=== PATIENT | female | born 1935 | race Caucasian/White ===

== ENCOUNTER 2023-09-06 19:24 | Inpatient (IN) | payer MEDICARE ==
[~2023-09-06] VITALS: Ht 139.7 cm; Wt 45.4 kg
[~2023-09-06 19:24] MED LIST: AMLODIPINE BESYL5 MG PO; CRESTOR10 MG PO; HYDRALAZINE HCL50 MG PO; LIALDA1.2 GM PO; LOSARTAN POTAS100 MG PO; METFORMIN HCL500 M2 PO; METOPROLOL TAR100 MG PO
[2023-09-06 20:15] VITALS: TEMP 97.9
[2023-09-06 21:11] LABS: BASOPHILS # (AUTO) 0.1 (0.0-0.1); BASOPHILS % 0.5 % (0.0-1.0); EOSINOPHILS # (AUTO) 0.1 (0.0-0.4); EOSINOPHILS % 0.9 % (0.0-6.0); HEMATOCRIT 45.3 % (34.2-44.1); HEMOGLOBIN 14.6 g/dL (12.0-16.0); LYMPHOCYTES # (AUTO) 1.9 (1.0-3.2); LYMPHOCYTES % 20.2 % (18.0-39.1); MEAN CORPUSCULAR HEMOGLOBIN 30.9 pg (28-32); MEAN CORPUSCULAR HGB CONC 32.2 g/dL (31-35); MONOCYTES # (AUTO) 0.7 (0.2-0.8); MONOCYTES % 7.8 % (4.4-11.3); NEUTROPHILS # (AUTO) 6.5 (2.1-6.9); NEUTROPHILS % 69.7 % (38.7-80.0); PLATELET COUNT 243 x10e3/uL (140-360); RED BLOOD COUNT 4.72 x10e6/uL (3.6-5.1); RED CELL DISTRIBUTION WIDTH 12.8 % (11.7-14.4); WHITE BLOOD COUNT 9.28 x10e3/uL (4.8-10.8)
[2023-09-06] MEDS: DILTIAZEM HCL 5 MG/ML 5 ML VIAL IV STA (21:11)
[2023-09-06] MEDS: ASPIRIN 81 MG CHEW TAB PO ONE (21:12)
[2023-09-06 21:17] LABS: CLARITY,URINE CLEAR (CLEAR); COLOR,URINE YELLOW (YELLOW); LEUKOCYTE ESTERASE ,URINE NEGATIVE (NEGATIVE); NITRITE,URINE NEGATIVE (NEGATIVE); PH,URINE 6 (5 - 7); PROTEIN,URINE DIPSTICK NEGATIVE (NEGATIVE)
[2023-09-06 21:18] LABS: BILIRUBIN,URINE NEGATIVE (NEGATIVE); GLUCOSE, URINE >=1000 (NEGATIVE); KETONES,URINE NEGATIVE (NEGATIVE); URINE UROBILINOGEN 0.2 mg/dL (0.2 - 1)
[2023-09-06 21:21] LABS: INR 0.85; PROTHROMBIN TIME 12.3 seconds (11.9-14.5)
[2023-09-06 21:22] LABS: PARTIAL THROMBOPLASTIN TIME 24.2 seconds (23.8-35.5)
[2023-09-06 21:28] LABS: EPITHELIAL CELLS,URINE RARE /LPF
[2023-09-06 21:29] LABS: ALBUMIN 4.4 g/dL (3.5-5.0); ALBUMIN/GLOBULIN RATIO 1.2 (0.8-2.0); ANION GAP 16.2 mmol/L (8-16); BILIRUBIN,TOTAL 0.9 mg/dL (0.2-1.2); CREATININE, SERUM 1.07 mg/dL (0.57-1.11); POTASSIUM 4.2 mmol/L (3.5-5.1); TOTAL PROTEIN 8.2 g/dL (6.5-8.1)
[2023-09-06 21:35] LABS: TROPONIN I 0.022 ng/mL (0-0.300)
[2023-09-06] MEDS ORDERED: IOPAMIDOL 370 MG/ML 100 ML INFUS..BTL INJ ONE (21:42)
[2023-09-06] MEDS: METOPROLOL TARTRATE 25 MG TAB PO ONE (22:07)
[2023-09-07] VITALS (11 sets, daily range): BP systolic 121–167; BP diastolic 57–87; PULSE 60–97; RESP 17–20; TEMP 97.6–98.7; O2SAT 96–99
[2023-09-07] MEDS ORDERED: ONDANSETRON HCL INJ 2MG/ML 2ML 2 MG/ML VIAL IV PRN (00:30)
[2023-09-07] MEDS: SODIUM CHLORIDE 0.9% 1000ML 1,000 ML IV SCH (00:34)
[2023-09-07] MEDS: METRONIDAZOLE 500MG/NS 100ML 100 ML IV SCH (02:06)
[2023-09-07 08:14] LABS: CREATINE KINASE 24 IU/L (29-168)
[2023-09-07 08:32] LABS: TROPONIN I < 0.001 ng/mL (0-0.300)
[2023-09-07] MEDS: SIMVASTATIN 40 MG TAB PO SCH (08:37)
[2023-09-07] MEDS: MESALAMINE 400 MG CAP PO SCH (08:37)
[2023-09-07] MEDS: LOSARTAN POTASSIUM 100 MG TAB PO SCH (08:37)
[2023-09-07] MEDS: METFORMIN HCL 500 MG TAB CR PO SCH (08:37)
[2023-09-07] MEDS: METOPROLOL TARTRATE 50 MG TAB PO SCH (08:38)
[2023-09-07] MEDS: APIXABAN 2.5 MG TABLET PO SCH (09:38)
[2023-09-07] MEDS: ONDANSETRON HCL INJ 2MG/ML 2ML 2 MG/ML VIAL IV PRN (14:22)
[2023-09-07] MEDS: ACETAMINOPHEN 325 MG TAB PO PRN (15:37)
[2023-09-07 18:06] LABS: CREATINE KINASE 66 IU/L (29-168)
[2023-09-07 18:13] LABS: TROPONIN I < 0.001 ng/mL (0-0.300)
[2023-09-08] VITALS (7 sets, daily range): BP systolic 121–144; BP diastolic 46–80; PULSE 67–89; RESP 17–19; TEMP 97.5–98.4; O2SAT 97–99
[2023-09-08] MEDS ORDERED: METOCLOPRAMIDE HCL 10 MG/2ML VIAL IV PRN (00:30)
[2023-09-08] MEDS: METOCLOPRAMIDE HCL 10 MG/2ML VIAL IV PRN (00:49)
[2023-09-08 06:29] LABS: BASOPHILS % 0.5 % (0.0-1.0); EOSINOPHILS # (AUTO) 0.1 (0.0-0.4); EOSINOPHILS % 1.8 % (0.0-6.0); HEMATOCRIT 35.6 % (34.2-44.1); HEMOGLOBIN 11.6 g/dL (12.0-16.0); LYMPHOCYTES # (AUTO) 1.7 (1.0-3.2); LYMPHOCYTES % 22.7 % (18.0-39.1); MEAN CORPUSCULAR HEMOGLOBIN 31.4 pg (28-32); MEAN CORPUSCULAR HGB CONC 32.6 g/dL (31-35); MEAN CORPUSCULAR VOLUME 96.5 fL (81-99); MONOCYTES # (AUTO) 0.7 (0.2-0.8); MONOCYTES % 8.5 % (4.4-11.3); NEUTROPHILS % 65.5 % (38.7-80.0); PLATELET COUNT 195 x10e3/uL (140-360); RED BLOOD COUNT 3.69 x10e6/uL (3.6-5.1); RED CELL DISTRIBUTION WIDTH 13.1 % (11.7-14.4); WHITE BLOOD COUNT 7.66 x10e3/uL (4.8-10.8)
[2023-09-08 06:52] LABS: ALBUMIN 3.1 g/dL (3.5-5.0); ALBUMIN/GLOBULIN RATIO 1.2 (0.8-2.0); ANION GAP 11.9 mmol/L (8-16); BILIRUBIN,TOTAL 1.4 mg/dL (0.2-1.2); CALCIUM 8.3 mg/dL (8.4-10.2); CHOL/HDL RATIO 2.2 (3.0-3.6); CREATININE, SERUM 0.92 mg/dL (0.57-1.11); POTASSIUM 3.9 mmol/L (3.5-5.1); TOTAL PROTEIN 5.7 g/dL (6.5-8.1)
[2023-09-08] MEDS: MELATONIN 5 MG TABLET PO SCH (20:06)
[2023-09-08] MEDS: METOCLOPRAMIDE HCL 10 MG/2ML VIAL IV SCH (22:59)
[2023-09-09] VITALS (8 sets, daily range): BP systolic 128–156; BP diastolic 47–80; PULSE 75–90; RESP 18; TEMP 97.2–98.4; O2SAT 97–100
[2023-09-10] VITALS: BP 148/67; PULSE 89; RESP 18; TEMP 97.6; O2SAT 98
[2023-09-10 04:00] VITALS: BP 141/59; PULSE 77; RESP 18; TEMP 97.8; O2SAT 97
[2023-09-10 08:00] VITALS: BP 166/77; PULSE 75; RESP 17; TEMP 97.9; O2SAT 97
[2023-09-10] MEDS: AMIODARONE HCL 200 MG TAB PO SCH (09:08)
[2023-09-10] MEDS ORDERED: ONDANSETRON HCL 4 MG ORAL DISINTEGRATING TAB PO PRN (11:15)
[2023-09-10 12:10] VITALS: BP 181/69; PULSE 71; RESP 18; TEMP 97.5; O2SAT 99
[2023-09-10 13:31] VITALS: BP 181/69
[2023-09-10] MEDS: CLONIDINE HCL 0.1 MG TAB PO SCH (13:31)
[2023-09-10] MEDS ORDERED: CLONIDINE HCL 0.1 MG TAB PO PRN (14:30)
== END 2023-09-10 15:26 | disposition home or self-care (01) | DRG 395 ==
LOC: ER 19:35 → ERHOLD 09-07 00:17 → MED/SURG3 09-07 02:02
PROVIDERS: ADMIT Internal Medicine; ATTEND Internal Medicine
DX: K62.89 Other specified diseases of anus and rectum (principal); E11.22 Type 2 diabetes mellitus with diabetic chronic kidney disease; R54 Age-related physical debility; I12.9 Hypertensive chronic kidney disease with stage 1 through stage 4 chronic kidney disease, or unspecified chronic kidney disease; N18.30 Chronic kidney disease, stage 3 unspecified; I48.91 Unspecified atrial fibrillation; E78.5 Hyperlipidemia, unspecified; R19.7 Diarrhea, unspecified; K21.9 Gastro-esophageal reflux disease without esophagitis; R11.2 Nausea with vomiting, unspecified; R00.8 Other abnormalities of heart beat; M54.50 Low back pain, unspecified; Z11.52 Encounter for screening for COVID-19; Z79.84 Long term (current) use of oral hypoglycemic drugs; Z90.49 Acquired absence of other specified parts of digestive tract; Z90.710 Acquired absence of both cervix and uterus; Z88.5 Allergy status to narcotic agent
CPT/HCPCS: 36415; 71045; 74177; 80053; 80061; 81001; 82550; 82948; 83735; 83880; 84443; 84484; 85025; 85610; 85730; 93005; 93306; 94799; 99284; J2405; J2543; J2765; J7030; Q9967; U0002